=== PATIENT | male | born 1955 | race Caucasian/White ===

== ENCOUNTER → 2017-01-23 | Outpatient (CLI) | payer OTHER | LOC: MHCPAIN 11:46 | DX: G89.29 Other chronic pain (principal); G58.8 Other specified mononeuropathies; M47.816 Spondylosis without myelopathy or radiculopathy, lumbar region | CPT/HCPCS: G0463 ==

== ENCOUNTER → 2017-01-25 | Outpatient (CLI) | payer OTHER | LOC: MHCPAIN 12:52 | DX: R10.2 Pelvic and perineal pain (principal) | CPT/HCPCS: J1040; Q9967 ==

== ENCOUNTER → 2017-02-26 | Outpatient (CLI) | payer OTHER | LOC: MHCPAIN 07:36 | DX: G89.29 Other chronic pain (principal); M79.2 Neuralgia and neuritis, unspecified; R10.30 Lower abdominal pain, unspecified | CPT/HCPCS: G0463 ==

== ENCOUNTER → 2017-03-08 | Outpatient (CLI) | payer OTHER | LOC: MHCPAIN 07:15 | DX: R10.2 Pelvic and perineal pain (principal) | CPT/HCPCS: J1040; Q9967 ==

== ENCOUNTER → 2017-05-11 | Outpatient (CLI) | payer OTHER | LOC: MHCPAIN 07:59 | DX: G89.29 Other chronic pain (principal); M79.2 Neuralgia and neuritis, unspecified; R10.30 Lower abdominal pain, unspecified | CPT/HCPCS: G0463 ==

== ENCOUNTER → 2017-08-13 | Outpatient (CLI) | payer OTHER | LOC: MHCPAIN 07:52 | DX: G89.29 Other chronic pain (principal); M79.2 Neuralgia and neuritis, unspecified; M79.1 Myalgia; R10.30 Lower abdominal pain, unspecified | CPT/HCPCS: G0463 ==